=== PATIENT | female | born 1990 | race Caucasian/White ===

== ENCOUNTER 2022-07-16 09:10 | Inpatient (IN) | payer OTHER ==
[2022-07-16] MEDS ORDERED: ELECTROLYTE-148 SOLN 1,000 ML IV ONE (09:50)
[2022-07-16] MEDS ORDERED: CITRIC ACID/SODIUM CITRATE 30 ML UNIT-DOSE CUP PO ONE (09:50)
[2022-07-16] MEDS ORDERED: ELECTROLYTE-148 SOLN 1,000 ML IV SCH (09:50)
[2022-07-16 10:54] VITALS: BMI 27.8
[2022-07-16] MEDS ORDERED: FENTANYL CITRATE/PF 50 MCG/ML VIAL ONE (13:20)
[2022-07-16] MEDS ORDERED: KETOROLAC TROMETHAMINE 30 MG/1 ML VIAL ONE (13:20)
[2022-07-16] MEDS ORDERED: OXYTOCIN 10 UNITS/ML VIAL ONE (13:20)
[2022-07-16] MEDS ORDERED: PHENYLEPHRINE HCL 10 MG/1 ML SINGLE DOSE VIAL ONE (13:20)
[2022-07-16] MEDS ORDERED: ONDANSETRON 4 MG/2 ML VIAL ONE (13:20)
[2022-07-16] MEDS ORDERED: morphine SULFATE/PF 1 MG/2 ML (2cc Syringe - QUVA) ONE (13:20)
[2022-07-16] MEDS ORDERED: ceFAZolin SODIUM 1 GM VIAL ONE (13:21)
[2022-07-16] MEDS ORDERED: ONDANSETRON 4 MG/2 ML VIAL IVPUSH PRN (14:52)
[2022-07-16] MEDS ORDERED: SENNOSIDES/DOCUSATE COMBO (SENNA PLUS) TABLET (UD) PO PRN (15:12)
[2022-07-16] MEDS ORDERED: IBUPROFEN 800 MG/8 ML IJ IVPB PRN (15:12)
[2022-07-16] MEDS ORDERED: METHYLERGONOVINE MALEATE 0.2 MG/1 ML AMP IM PRN (15:12)
[2022-07-16] MEDS ORDERED: ACETAMINOPHEN 325 MG TABLET (FP) PO PRN (15:12)
[2022-07-16] MEDS ORDERED: DEXTROSE 5%-LACTATED RINGERS 1,000 ML IV SCH (15:15)
[2022-07-16] MEDS ORDERED: ACETAMINOPHEN 1000 MG/100 ML BAG IVPB PRN (15:15)
[2022-07-16] MEDS: OXYTOCIN 20 UNITS in 0.9% NS 20 UNIT/1,000 ML INFUS.BAG IV SCH (15:20)
[2022-07-16] MEDS: FERROUS SO4 325 MG TABLET (FP) PO SCH (23:57)
[2022-07-17] MEDS: OXYTOCIN 20 UNITS in 0.9% NS 20 UNIT/1,000 ML INFUS.BAG IV SCH (01:00)
[2022-07-17] MEDS ORDERED: oxyCODONE HCL 5 MG TABLET PO PRN ×2 (03:12)
[2022-07-17] MEDS: SIMETHICONE 80 MG TAB.CHEW (FP) PO PRN ×3 (06:07→20:08)
[2022-07-17 09:24] LABS: BASO % 0.3 % (0-2.0); EOS % 3.1 % (0-4.5); HEMATOCRIT 36.2 % (32.4-45.2); HEMOGLOBIN 12.4 GM/dL (10.7-15.3); LYMPH % 9.9 % (8-40); MCH 30.6 pg (25.7-33.7); MCHC 34.3 g/dl (32.0-36.0); MEAN CELL VOLUME 89.2 fl (80-96); MEAN PLT VOLUME 9.4 fl (7.5-11.1); MONO % 5.6 % (3.8-10.2); NEUT % 81.1 % (42.8-82.8); PLATELET COUNT 156 10^3/uL (134-434); RBC 4.06 M/mm3 (3.60-5.2); RDW 13.5 % (11.6-15.6); WHITE BLOOD COUNT 10.4 K/mm3 (4.0-10.0)
[2022-07-17] MEDS: FERROUS SO4 325 MG TABLET (FP) PO SCH ×2 (09:40→21:35)
[2022-07-17] MEDS: PRENATAL VITAMINS W/ FOLIC ACID TABLET (FP) PO SCH (09:40)
[2022-07-17] MEDS: IBUPROFEN 600 MG TABLET (FP) PO PRN ×2 (13:51→20:08)
[2022-07-17] MEDS ORDERED: BISACODYL 10 MG SUPP.RECT RC PRN (15:12)
[2022-07-18] MEDS: IBUPROFEN 600 MG TABLET (FP) PO PRN ×4 (00:11→19:50)
[2022-07-18] MEDS: SIMETHICONE 80 MG TAB.CHEW (FP) PO PRN ×3 (09:00→19:50)
[2022-07-18] MEDS: FERROUS SO4 325 MG TABLET (FP) PO SCH ×2 (09:00→21:23)
[2022-07-18] MEDS: PRENATAL VITAMINS W/ FOLIC ACID TABLET (FP) PO SCH (09:00)
[2022-07-19] MEDS: SIMETHICONE 80 MG TAB.CHEW (FP) PO PRN ×2 (05:30→09:05)
[2022-07-19] MEDS: IBUPROFEN 600 MG TABLET (FP) PO PRN ×2 (05:30→09:06)
[2022-07-19 08:24] VITALS: BP 100/62; PULSE 94; RESP 18; TEMP 98.3
[2022-07-19] MEDS: FERROUS SO4 325 MG TABLET (FP) PO SCH (09:05)
[2022-07-19] MEDS: PRENATAL VITAMINS W/ FOLIC ACID TABLET (FP) PO SCH (09:06)
== END 2022-07-19 12:00 | disposition home or self-care (01) | DRG 540 ==
LOC: JLDR 09:10 → J3W 16:20
PROVIDERS: ADMIT Obstetrics & Gynecology; ATTEND Obstetrics & Gynecology
PROC: 10D00Z1 Extraction of Products of Conception, Low, Open Approach (ICD-10-PCS; principal; 2022-07-16)
PROC: 0UL70ZZ Occlusion of Bilateral Fallopian Tubes, Open Approach (ICD-10-PCS; 2022-07-16)
DX: O34.219 Maternal care for unspecified type scar from previous cesarean delivery (principal); Z3A.39 39 weeks gestation of pregnancy; Z37.0 Single live birth; Z30.2 Encounter for sterilization
CPT/HCPCS: 36415; 85025; 88302-TC; 88307-TC; 94010